=== PATIENT | male | born 1965 | race African-American/Black ===

== ENCOUNTER 2018-07-18 07:53 | Outpatient (CLI) | payer OTHER | END 2018-07-18 15:00 | disposition home or self-care (01) | LOC: LAB 07:53 | DX: D72.818 Other decreased white blood cell count (principal); D51.3 Other dietary vitamin B12 deficiency anemia; D51.1 Vitamin B12 deficiency anemia due to selective vitamin B12 malabsorption with proteinuria; D50.8 Other iron deficiency anemias; D51.8 Other vitamin B12 deficiency anemias; I10 Essential (primary) hypertension; D55.0 Anemia due to glucose-6-phosphate dehydrogenase [G6PD] deficiency; D51.0 Vitamin B12 deficiency anemia due to intrinsic factor deficiency; K90.89 Other intestinal malabsorption; E03.8 Other specified hypothyroidism; E06.3 Autoimmune thyroiditis; R97.0 Elevated carcinoembryonic antigen [CEA]; R97.8 Other abnormal tumor markers ==

== ENCOUNTER 2018-07-18 09:47 | Outpatient (CLI) | payer OTHER | END 2018-07-18 09:50 | disposition home or self-care (01) | LOC: SONOGRAMA 09:47 | DX: E06.3 Autoimmune thyroiditis (principal); E03.8 Other specified hypothyroidism; D51.1 Vitamin B12 deficiency anemia due to selective vitamin B12 malabsorption with proteinuria; D51.3 Other dietary vitamin B12 deficiency anemia; D72.818 Other decreased white blood cell count; E04.1 Nontoxic single thyroid nodule ==